=== PATIENT | female | born 1940 | race Caucasian/White ===

== ENCOUNTER 2024-03-09 11:33 | Inpatient (IN) ==
[2024-03-09] MEDS: HYDROcodone/APAP 5/325MG TABLET PO PRN (14:50)
[2024-03-09] MEDS: ACETAMINOPHEN 325 MG TABLET PO ONE (14:51)
[2024-03-09 15:27] LABS: Basophils # (Auto) 0.04 K/mcL (0.00-0.30); Basophils % (Auto) 0.6 % (0.0-2.0); Eosinophils # (Auto) 0.16 K/mcL (0.00-0.70); Eosinophils % (Auto) 2.3 % (0.0-7.0); Hematocrit 36.5 % (34.1-44.9); Hemoglobin 11.7 g/dL (11.2-15.7); Lymphocytes # (Auto) 1.24 K/mcL (1.50-4.80); Lymphocytes % (Auto) 18.2 % (15.5-49.0); Mean Cell Volume 102.5 fL (80.0-100.0); Mean Corpuscular HGB Conc 32.1 g/dL (31.0-36.0); Mean Platelet Volume 9.2 fL (8.8-12.5); Monocytes # (Auto) 0.53 K/mcL (0.10-0.90); Monocytes % (Auto) 7.8 % (1.0-12.0); Neutrophils % (Auto) 70.7 % (38.0-78.0); Platelet Count 236 K/mcL (140-440); RBC 3.56 M/mcL (3.59-5.38); Red Cell Distribution Width 11.8 % (11.5-14.5); WBC 6.8 K/mcL (4.5-11.0)
[2024-03-09 15:46] LABS: ALT/SGPT 12 U/L (<40); AST/SGOT 27 U/L (<32); Albumin 4.2 gm/dL (3.2-5.2); Albumin/Globulin Ratio 1.4 (1.0-2.3); Alkaline Phosphatase 110 U/L (39-117); Bilirubin,Total 0.3 mg/dL (0.1-1.0); Blood Urea Nitrogen 14 mg/dL (8-23); Calcium 9.4 mg/dL (8.6-10.4); Carbon Dioxide 23 mmol/L (22-30); Chloride 102 mmol/L (96-108); Globulin 3.1 gm/dL (2.2-3.7); Glomerular Filtration Rate 80; Glucose 98 mg/dL (70-105); Potassium 4.2 mmol/L (3.3-5.1); Sodium 137 mmol/L (133-145)
[2024-03-09] MEDS ORDERED: IPRATROPIUM/ALBUTEROL 3 ML AMPUL.NEB NEB PRN (17:07)
[2024-03-09] MEDS ORDERED: SENNOSIDES 1 TABLET PO PRN (17:07)
[2024-03-09] MEDS ORDERED: HYDROcodone/APAP 5/325MG TABLET PO PRN (17:13)
[2024-03-09] MEDS: GABAPENTIN 100 MG CAPSULE PO PRN (19:52)
[2024-03-09] MEDS: ACETAMINOPHEN 325 MG TABLET PO PRN (19:53)
[2024-03-09] MEDS: oxyCODONE IR 5 MG TABLET PO SCH (20:56)
[2024-03-09] MEDS: ONDANSETRON 4 MG/2 ML VIAL IV PRN (20:57)
[2024-03-09] MEDS: oxyCODONE IR 5 MG TABLET PO ONE (20:57)
[2024-03-09] MEDS: morphine 4 MG/ML VIAL IV PRN (20:57)
[2024-03-09] MEDS: HEPARIN 5,000 UNIT/ML VIAL SQ SCH (20:57)
[2024-03-09] MEDS: METOPROLOL TARTRATE 25 MG TABLET PO SCH (20:57)
[2024-03-09] MEDS: 0.9 % SODIUM CHLORIDE 10 ML SYRINGE IV SCH (20:58)
[2024-03-10 06:44] LABS: Basophils # (Auto) 0.04 K/mcL (0.00-0.30); Basophils % (Auto) 0.7 % (0.0-2.0); Eosinophils # (Auto) 0.23 K/mcL (0.00-0.70); Hematocrit 34.8 % (34.1-44.9); Hemoglobin 11.2 g/dL (11.2-15.7); Lymphocytes # (Auto) 1.43 K/mcL (1.50-4.80); Mean Cell Volume 103.9 fL (80.0-100.0); Mean Corpuscular HGB Conc 32.2 g/dL (31.0-36.0); Mean Platelet Volume 9.5 fL (8.8-12.5); Monocytes # (Auto) 0.53 K/mcL (0.10-0.90); Monocytes % (Auto) 9.3 % (1.0-12.0); Neutrophils % (Auto) 60.6 % (38.0-78.0); Platelet Count 247 K/mcL (140-440); RBC 3.35 M/mcL (3.59-5.38); Red Cell Distribution Width 11.7 % (11.5-14.5); WBC 5.7 K/mcL (4.5-11.0)
[2024-03-10 07:26] LABS: Blood Urea Nitrogen 18 mg/dL (8-23); Calcium 9.2 mg/dL (8.6-10.4); Carbon Dioxide 21 mmol/L (22-30); Chloride 99 mmol/L (96-108); Glomerular Filtration Rate 59; Glucose 90 mg/dL (70-105); Potassium 4.8 mmol/L (3.3-5.1); Sodium 132 mmol/L (133-145)
[2024-03-10] MEDS: ASPIRIN 81 MG TAB.CHEW PO SCH (08:54)
[2024-03-10] MEDS: CLOPIDOGREL 75 MG TABLET PO SCH (08:54)
[2024-03-10] MEDS: oxyCODONE IR 5 MG TABLET PO PRN ×2 (10:37→16:36)
[2024-03-10] MEDS: valACYclovir 500 MG TABLET PO SCH (20:56)
[2024-03-11] MEDS: GABAPENTIN 100 MG CAPSULE PO PRN (05:32)
[2024-03-11 06:48] LABS: Basophils # (Auto) 0.04 K/mcL (0.00-0.30); Basophils % (Auto) 0.6 % (0.0-2.0); Eosinophils # (Auto) 0.23 K/mcL (0.00-0.70); Eosinophils % (Auto) 3.3 % (0.0-7.0); Hematocrit 33.7 % (34.1-44.9); Hemoglobin 10.9 g/dL (11.2-15.7); Lymphocytes # (Auto) 1.35 K/mcL (1.50-4.80); Lymphocytes % (Auto) 19.7 % (15.5-49.0); Mean Cell Volume 103.4 fL (80.0-100.0); Mean Corpuscular HGB Conc 32.3 g/dL (31.0-36.0); Mean Platelet Volume 9.5 fL (8.8-12.5); Monocytes % (Auto) 10.2 % (1.0-12.0); Neutrophils % (Auto) 65.6 % (38.0-78.0); Platelet Count 234 K/mcL (140-440); RBC 3.26 M/mcL (3.59-5.38); Red Cell Distribution Width 11.8 % (11.5-14.5); WBC 6.9 K/mcL (4.5-11.0)
[2024-03-11 07:13] LABS: Blood Urea Nitrogen 22 mg/dL (8-23); Calcium 8.9 mg/dL (8.6-10.4); Carbon Dioxide 23 mmol/L (22-30); Chloride 98 mmol/L (96-108); Glomerular Filtration Rate 59; Glucose 107 mg/dL (70-105); Potassium 4.7 mmol/L (3.3-5.1); Sodium 133 mmol/L (133-145)
[2024-03-11] MEDS: oxyCODONE IR 5 MG TABLET PO PRN (11:36)
[2024-03-12 07:04] LABS: Basophils # (Auto) 0.04 K/mcL (0.00-0.30); Basophils % (Auto) 0.8 % (0.0-2.0); Eosinophils % (Auto) 4.1 % (0.0-7.0); Hematocrit 32.9 % (34.1-44.9); Hemoglobin 10.5 g/dL (11.2-15.7); Lymphocytes # (Auto) 1.45 K/mcL (1.50-4.80); Lymphocytes % (Auto) 29.8 % (15.5-49.0); Mean Cell Volume 103.8 fL (80.0-100.0); Mean Corpuscular HGB Conc 31.9 g/dL (31.0-36.0); Mean Platelet Volume 9.5 fL (8.8-12.5); Monocytes # (Auto) 0.56 K/mcL (0.10-0.90); Monocytes % (Auto) 11.5 % (1.0-12.0); Neutrophils % (Auto) 53.2 % (38.0-78.0); Platelet Count 204 K/mcL (140-440); RBC 3.17 M/mcL (3.59-5.38); Red Cell Distribution Width 11.7 % (11.5-14.5); WBC 4.9 K/mcL (4.5-11.0)
[2024-03-12 07:42] LABS: Blood Urea Nitrogen 15 mg/dL (8-23); Carbon Dioxide 23 mmol/L (22-30); Chloride 100 mmol/L (96-108); Glomerular Filtration Rate 80; Glucose 96 mg/dL (70-105); Potassium 4.6 mmol/L (3.3-5.1); Sodium 135 mmol/L (133-145)
[2024-03-12] MEDS: MAGNESIUM HYDROXIDE 30 ML ORAL.SUSP PO PRN (09:22)
== END 2024-03-12 14:45 | disposition home health service (06) | DRG 536 ==
LOC: ED 11:33 → MEDSUR 16:18
PROVIDERS: ADMIT Student in an Organized Health Care Education/Training Program; ATTEND Student in an Organized Health Care Education/Training Program

== ENCOUNTER 2024-04-06 09:58 | Inpatient (IN) ==
[2024-04-06] MEDS: cefTRIAXone 1 GM in DEXTROSE 5% IN WATER 50 ML IV ONE (10:34)
[2024-04-06] MEDS: 0.9 % SODIUM CHLORIDE 500 ML IV ONE (10:34)
[2024-04-06] MEDS: PANTOPRAZOLE 40 MG VIAL IV ONE (10:50)
[2024-04-06] MEDS: 0.9 % SODIUM CHLORIDE 250 ML IV SCH ×3 (10:51→19:05)
[2024-04-06 11:07] LABS: Basophils # (Auto) 0.02 K/mcL (0.00-0.30); Basophils % (Auto) 0.3 % (0.0-2.0); Eosinophils # (Auto) 0.08 K/mcL (0.00-0.70); Eosinophils % (Auto) 1.3 % (0.0-7.0); Hemoglobin 7.7 g/dL (11.2-15.7); Lymphocytes # (Auto) 0.94 K/mcL (1.50-4.80); Lymphocytes % (Auto) 15.8 % (15.5-49.0); Mean Cell Volume 104.8 fL (80.0-100.0); Mean Corpuscular HGB Conc 32.1 g/dL (31.0-36.0); Mean Platelet Volume 9.7 fL (8.8-12.5); Monocytes # (Auto) 0.35 K/mcL (0.10-0.90); Monocytes % (Auto) 5.9 % (1.0-12.0); Neutrophils % (Auto) 75.9 % (38.0-78.0); Platelet Count 217 K/mcL (140-440); RBC 2.29 M/mcL (3.59-5.38); Red Cell Distribution Width 13.1 % (11.5-14.5)
[2024-04-06 11:14] LABS: Prothrombin Time 13.6 sec (11.9-14.5)
[2024-04-06 11:23] LABS: ALT/SGPT 10 U/L (<40); AST/SGOT 18 U/L (<32); Albumin 3.6 gm/dL (3.2-5.2); Albumin/Globulin Ratio 1.6 (1.0-2.3); Alkaline Phosphatase 105 U/L (39-117); Bilirubin,Total < 0.2 mg/dL (0.1-1.0); Blood Urea Nitrogen 40 mg/dL (8-23); Calcium 8.7 mg/dL (8.6-10.4); Carbon Dioxide 24 mmol/L (22-30); Chloride 105 mmol/L (96-108); Globulin 2.3 gm/dL (2.2-3.7); Glomerular Filtration Rate 68; Glucose 143 mg/dL (70-105); Potassium 3.7 mmol/L (3.3-5.1); Sodium 140 mmol/L (133-145)
[2024-04-06] MEDS: OCTREOTIDE ACETATE 100 MCG/ML VIAL IV ONE (13:41)
[2024-04-06] MEDS: PANTOPRAZOLE 80 MG in 0.9 % SODIUM CHLORIDE 100 ML IV SCH (13:42)
[2024-04-06] MEDS: OCTREOTIDE ACETATE 500 MCG in 0.9 % SODIUM CHLORIDE 499.5 ML IV SCH (14:13)
[2024-04-06] MEDS: oxyCODONE IR 5 MG TABLET PO PRN (17:31)
[2024-04-06] MEDS: 0.9 % SODIUM CHLORIDE 1,000 ML IV SCH (18:00)
[2024-04-06] MEDS: SUCRALFATE 1 GM/10 ML ORAL.SUSP PO SCH (19:27)
[2024-04-06 22:25] LABS: Hematocrit 32.4 % (34.1-44.9); Hemoglobin 10.6 g/dL (11.2-15.7)
[2024-04-06] MEDS: GABAPENTIN 100 MG CAPSULE PO SCH (22:36)
[2024-04-07 06:38] LABS: ALT/SGPT 11 U/L (<40); AST/SGOT 25 U/L (<32); Albumin 3.3 gm/dL (3.2-5.2); Albumin/Globulin Ratio 1.5 (1.0-2.3); Alkaline Phosphatase 91 U/L (39-117); Bilirubin,Direct < 0.2 mg/dL (0-0.3); Bilirubin,Total 0.6 mg/dL (0.1-1.0); Blood Urea Nitrogen 23 mg/dL (8-23); Calcium 8.5 mg/dL (8.6-10.4); Carbon Dioxide 20 mmol/L (22-30); Chloride 112 mmol/L (96-108); Globulin 2.2 gm/dL (2.2-3.7); Glomerular Filtration Rate 80; Glucose 119 mg/dL (70-105); Lactate Dehydrogenase 163 U/L (135-225); Potassium 4.1 mmol/L (3.3-5.1); Sodium 142 mmol/L (133-145); Triglycerides 196 mg/dL (<150); Uric Acid 4.4 mg/dL (2.5-8.0)
[2024-04-07 06:45] LABS: Basophils # (Auto) 0.03 K/mcL (0.00-0.30); Basophils % (Auto) 0.6 % (0.0-2.0); Eosinophils # (Auto) 0.26 K/mcL (0.00-0.70); Eosinophils % (Auto) 5.2 % (0.0-7.0); Hematocrit 34.2 % (34.1-44.9); Lymphocytes # (Auto) 1.44 K/mcL (1.50-4.80); Lymphocytes % (Auto) 28.6 % (15.5-49.0); Mean Cell Volume 95.8 fL (80.0-100.0); Mean Corpuscular HGB Conc 32.2 g/dL (31.0-36.0); Mean Platelet Volume 9.6 fL (8.8-12.5); Monocytes # (Auto) 0.48 K/mcL (0.10-0.90); Monocytes % (Auto) 9.5 % (1.0-12.0); Neutrophils % (Auto) 55.1 % (38.0-78.0); Platelet Count 183 K/mcL (140-440); RBC 3.57 M/mcL (3.59-5.38); Red Cell Distribution Width 18.9 % (11.5-14.5)
[2024-04-07] MEDS: fentaNYL 100 MCG/2 ML VIAL IV PRN (06:59)
[2024-04-07] MEDS ORDERED: ONDANSETRON 4 MG/2 ML VIAL IV PRN (12:08)
[2024-04-07] MEDS ORDERED: PROPOFOL 200 MG/20 ML VIAL IV ONE (12:21)
[2024-04-07] MEDS ORDERED: LIDOCAINE 2% PF 5 ML VIAL IJ ONE (12:21)
[2024-04-07] MEDS ORDERED: GLYCOPYRROLATE 0.2 MG/ML VIAL IV ONE (12:21)
[2024-04-07] MEDS: GABAPENTIN 100 MG CAPSULE PO SCH (14:43)
[2024-04-07] MEDS: PNEUMOCOCCAL 23-VAL P-SAC VAC 0.5 ML SYRINGE IM ONE (16:29)
[2024-04-07] MEDS: PANTOPRAZOLE 80 MG in 0.9 % SODIUM CHLORIDE 100 ML IV SCH (19:13)
[2024-04-07] MEDS: METOPROLOL TARTRATE 25 MG TABLET PO SCH (20:47)
[2024-04-08 06:49] LABS: Basophils # (Auto) 0.04 K/mcL (0.00-0.30); Basophils % (Auto) 0.5 % (0.0-2.0); Eosinophils # (Auto) 0.38 K/mcL (0.00-0.70); Eosinophils % (Auto) 4.8 % (0.0-7.0); Hematocrit 36.7 % (34.1-44.9); Hemoglobin 11.6 g/dL (11.2-15.7); Lymphocytes # (Auto) 1.39 K/mcL (1.50-4.80); Lymphocytes % (Auto) 17.4 % (15.5-49.0); Mean Cell Volume 99.7 fL (80.0-100.0); Mean Corpuscular HGB Conc 31.6 g/dL (31.0-36.0); Mean Platelet Volume 9.5 fL (8.8-12.5); Monocytes # (Auto) 0.66 K/mcL (0.10-0.90); Monocytes % (Auto) 8.3 % (1.0-12.0); Neutrophils % (Auto) 68.2 % (38.0-78.0); Platelet Count 183 K/mcL (140-440); RBC 3.68 M/mcL (3.59-5.38)
[2024-04-08] MEDS ORDERED: PNEUMOCOCCAL 23-VAL P-SAC VAC 0.5 ML SYRINGE IM ONE (10:00)
[2024-04-08] MEDS: PNEUMOCOCCAL 23-VAL P-SAC VAC 0.5 ML SYRINGE IM ONE (13:06)
[2024-04-08] MEDS: PANTOPRAZOLE 40 MG TABLET PO SCH (17:16)
[2024-04-09] MEDS: ACETAMINOPHEN 500 MG TABLET PO ONE (14:34)
[2024-04-09] MEDS: ACETAMINOPHEN 325 MG TABLET PO ONE (14:34)
== END 2024-04-09 15:50 | disposition home or self-care (01) | DRG 378 ==
LOC: ED 09:58 → ICU 14:36 → MEDSUR 04-08 15:01
PROVIDERS: ADMIT Family Medicine Adult Medicine; ATTEND Family Medicine Adult Medicine